=== PATIENT | male | born 1995 | race African-American/Black ===

== ENCOUNTER 2024-07-17 07:11 | Emergency (ER) | payer MEDICAID, SELFPAY ==
[~2024-07-17] VITALS: Ht 165.1 cm; Wt 59.7 kg
[2024-07-17 07:14] VITALS: BP 116/70; TEMP 100; O2SAT 100
[2024-07-17 09:05] LABS: RSV AMPLIFICATION NEGATIVE (NEGATIVE)
[2024-07-17] MEDS ORDERED: OXYM15SP2 (09:20)
[2024-07-17] MEDS ORDERED: BENZ200C70 PO (09:20)
[2024-07-17] MEDS ORDERED: MUCI600T31 PO (09:20)
== END 2024-07-17 09:44 | disposition home or self-care (01) ==
LOC: M ED 07:11
DX: J09.X2 Influenza due to identified novel influenza A virus with other respiratory manifestations (principal); F12.10 Cannabis abuse, uncomplicated; Z88.0 Allergy status to penicillin; Z79.899 Other long term (current) drug therapy